=== PATIENT | male | born 1950 | race Caucasian/White ===

== ENCOUNTER 2017-10-29 17:19 | Inpatient (IN) | payer MEDICARE, OTHER ==
[~2017-10-29] VITALS: Ht 172.7 cm; Wt 87.0 kg
[2017-10-29] MEDS ORDERED: SODIUM CHLORIDE FLUSH 10ML SYR IVF ONE (18:00)
[2017-10-29 18:24] LABS: BASOPHILS # (AUTO) 0.02 x10^3/uL (0-0.1); BASOPHILS % (AUTO) 0 % (0-1); EOSINOPHILS # (AUTO) 0.04 x10^3/uL (0-0.4); EOSINOPHILS % (AUTO) 1 % (1-7); LYMPHOCYTES # (AUTO) 0.87 x10^3/uL (1-3.4); LYMPHOCYTES % (AUTO) 16 % (22-44); MD NO; MEAN CORPUSCULAR HEMOGLOBIN 34.5 pg (27.5-34.5); MEAN CORPUSCULAR HGB CONC 33.9 g/dL (33.2-36.2); MEAN CORPUSCULAR VOLUME 101.8 fL (81-97); MEAN PLATELET VOLUME 8.5 fL (7.4-10.4); MONOCYTES # (AUTO) 0.43 x10^3/uL (0.2-0.8); MONOCYTES % (AUTO) 8 % (2-9); NEUTROPHILS # (AUTO) 4.18 x10^3/uL (1.8-6.8); NEUTROPHILS % (AUTO) 76 % (42-75); PLATELET COUNT 154 x10^3/uL (130-400); RED BLOOD COUNT 4.61 x10^6/uL (4.38-5.82); RED CELL DISTRIBUTION WIDTH 12.5 % (9.4-14.8)
[2017-10-29 18:33] LABS: ALANINE AMINOTRANSFERASE 29 U/L (12-78); ALBUMIN 3.5 g/dL (3.4-5.0); ANION GAP 6 mmol/L (5-15); CALCIUM 9.6 mg/dL (8.5-10.1); CHLORIDE 108 mmol/L (98-107); CREATININE 0.71 mg/dL (0.7-1.3)
[2017-10-29 18:35] LABS: ALKALINE PHOSPHATASE 84 U/L (45-117); BILIRUBIN,TOTAL 0.8 mg/dL (0.2-1.0); TOTAL PROTEIN 7.1 g/dL (6.4-8.2)
[2017-10-29] MEDS ORDERED: MORPHINE SULFATE 4 MG/ML, 1ML ONE ×2 (18:52→20:27)
[2017-10-29] MEDS ORDERED: ONDANSETRON ODT 4 MG ONE (19:19)
[2017-10-29] MEDS: MORPHINE SULFATE 4 MG/ML, 1ML IVPush PRN ×2 (19:21→20:32)
[2017-10-29] MEDS ORDERED: ONDANSETRON ODT 4 MG PO ONE (19:30)
[2017-10-29] MEDS ORDERED: LORazepam 2 MG/ML, 1ML ONE (19:40)
[2017-10-29] MEDS ORDERED: OMNIPAQUE 350 MG/ML, 100ML BOTTLE ONE (19:59)
[2017-10-29] MEDS ORDERED: LORazepam 2 MG/ML, 1ML IVPush ONE (20:00)
[2017-10-29 20:23] LABS: MICROSCOPIC NOT IND
[2017-10-29 20:26] LABS: CULTURE INDICATED? NO
[2017-10-29] MEDS ORDERED: METRONIDAZOLE PMX 500MG/100ML 100 ML IV ONE (21:30)
[2017-10-29] MEDS ORDERED: CEFTRIAXONE PMX 1GM/50ML 50 ML IV ONE (21:30)
[2017-10-29] MEDS ORDERED: CEFTRIAXONE PMX 1GM/50ML 50 ML ONE (22:11)
[2017-10-29] MEDS ORDERED: METRONIDAZOLE PMX 500MG/100ML 100 ML ONE (22:11)
[2017-10-29] MEDS ORDERED: hydrALAzine 20 MG/ML, 1ML IVPush PRN (22:30)
[2017-10-29] MEDS ORDERED: ONDANSETRON ODT 4 MG PO PRN (22:30)
[2017-10-29] MEDS: METRONIDAZOLE PMX 500MG/100ML 100 ML IV SCH (22:30)
[2017-10-29] MEDS: CEFTRIAXONE PMX 1GM/50ML 50 ML IV SCH (22:30)
[2017-10-29] MEDS: LACTATED RINGERS 1,000 ML IV SCH (22:36)
[2017-10-29 22:45] VITALS: BP 159/83
[2017-10-29] MEDS ORDERED: LORazepam 2 MG/ML, 1ML IV PRN ×3 (23:00)
[2017-10-29] MEDS: morphine SULFATE 10 MG/ML, 1ML IVPush PRN (23:10)
[2017-10-30] MEDS: POTASSIUM CHLORIDE 20 MEQ, MAGNESIUM SULFATE 1 GM, FOLIC ACID 1 MG, THIAMINE 200 MG, MV... IV SCH ×2 (00:20→23:27)
[2017-10-30 02:11] VITALS: BP 101/59
[2017-10-30 04:42] LABS: BASOPHILS # (AUTO) 0.01 x10^3/uL (0-0.1); BASOPHILS % (AUTO) 0 % (0-1); EOSINOPHILS % (AUTO) 0 % (1-7); LYMPHOCYTES # (AUTO) 0.54 x10^3/uL (1-3.4); LYMPHOCYTES % (AUTO) 7 % (22-44); MD NO; MEAN CORPUSCULAR HEMOGLOBIN 34.7 pg (27.5-34.5); MEAN CORPUSCULAR HGB CONC 34.3 g/dL (33.2-36.2); MEAN CORPUSCULAR VOLUME 101.1 fL (81-97); MEAN PLATELET VOLUME 8.5 fL (7.4-10.4); MONOCYTES # (AUTO) 0.37 x10^3/uL (0.2-0.8); MONOCYTES % (AUTO) 5 % (2-9); NEUTROPHILS # (AUTO) 7.22 x10^3/uL (1.8-6.8); NEUTROPHILS % (AUTO) 89 % (42-75); PLATELET COUNT 135 x10^3/uL (130-400); RED BLOOD COUNT 4.13 x10^6/uL (4.38-5.82); RED CELL DISTRIBUTION WIDTH 12.6 % (9.4-14.8)
[2017-10-30 04:45] LABS: ALANINE AMINOTRANSFERASE 157 U/L (12-78); ANION GAP 6 mmol/L (5-15); CALCIUM 8.5 mg/dL (8.5-10.1); CHLORIDE 107 mmol/L (98-107); CREATININE 0.74 mg/dL (0.7-1.3)
[2017-10-30 04:47] LABS: ALKALINE PHOSPHATASE 165 U/L (45-117); BILIRUBIN,TOTAL 1.3 mg/dL (0.2-1.0)
[2017-10-30] MEDS: morphine SULFATE 10 MG/ML, 1ML IVPush PRN ×3 (06:30→20:54)
[2017-10-30] MEDS: METRONIDAZOLE PMX 500MG/100ML 100 ML IV SCH ×3 (06:30→22:23)
[2017-10-30] MEDS: LACTATED RINGERS 1,000 ML IV SCH (06:31)
[2017-10-30] MEDS ORDERED: EPINEPHRINE 1 MG/ML, 1ML ONE (07:35)
[2017-10-30] MEDS ORDERED: BUPIVACAINE/PF 0.25% ONE (07:35)
[2017-10-30] MEDS: LORazepam 2 MG/ML, 1ML IV PRN (08:15)
[2017-10-30 08:21] VITALS: BP 100/63
[2017-10-30 09:04] VITALS: BP 101/63
[2017-10-30 13:39] VITALS: BP 102/64
[2017-10-30] MEDS ORDERED: MIDAZOLAM 1 MG/ML, 2ML ONE (15:10)
[2017-10-30] MEDS ORDERED: ROCURONIUM 10MG/ML,5ML ONE (15:11)
[2017-10-30] MEDS ORDERED: FENTANYL PF 250 MCG/5ML ONE (15:11)
[2017-10-30] MEDS ORDERED: PROPOFOL 10 MG/ML, 20ML ONE (15:12)
[2017-10-30] MEDS ORDERED: NEOSTIGMINE 1 MG/ML, 10ML ONE (15:13)
[2017-10-30] MEDS ORDERED: GLYCOPYRROLATE 0.2MG/1ML, 5ML ONE (15:13)
[2017-10-30] MEDS ORDERED: CEFOTETAN PMX 2GM/50ML 50 ML ONE (15:14)
[2017-10-30] MEDS ORDERED: hydrALAzine 20 MG/ML, 1ML IV PRN (16:00)
[2017-10-30] MEDS ORDERED: OXYcodone 5 MG/5 ML ORAL.SOL UDC PO PRN (16:00)
[2017-10-30] MEDS ORDERED: ONDANSETRON ODT 8 MG PO PRN (16:00)
[2017-10-30] MEDS ORDERED: LABETALOL 5MG/ML, 20ML IV PRN (16:00)
[2017-10-30] MEDS ORDERED: PROMETHAZINE 25 MG SUPP PR PRN (16:00)
[2017-10-30] MEDS ORDERED: FENTANYL PF 100 MCG/2ML IV PRN (16:00)
[2017-10-30] MEDS ORDERED: PROMETHAZINE 25 MG/ML, 1ML IV PRN (16:00)
[2017-10-30] MEDS ORDERED: MEPERIDINE/PF 25MG/0.5ML IVPush PRN (16:00)
[2017-10-30] MEDS ORDERED: HYDROmorphone 1 MG/ML, 1ML IV PRN (16:00)
[2017-10-30] MEDS ORDERED: PROMETHAZINE 12.5 MG SUPP PR PRN (16:00)
[2017-10-30] MEDS ORDERED: MORPHINE SULFATE 4 MG/ML, 1ML IVPush PRN (16:00)
[2017-10-30] MEDS ORDERED: FENTANYL PF 100 MCG/2ML ONE (16:59)
[2017-10-30] MEDS ORDERED: ACETAMINOPHEN 650 MG/20.3 ML UDC ONE (16:59)
[2017-10-30] MEDS ORDERED: OXYcodone 5 MG/5 ML ORAL.SOL UDC ONE (17:00)
[2017-10-30] MEDS ORDERED: MEPERIDINE/PF 25MG/0.5ML ONE (17:00)
[2017-10-30] MEDS: ACETAMINOPHEN 325 MG TABLET PO PRN ×2 (17:06→20:54)
[2017-10-30 18:55] VITALS: BP 101/65
[2017-10-30 20:55] VITALS: BP 103/67
[2017-10-30] MEDS: CEFTRIAXONE PMX 1GM/50ML 50 ML IV SCH (21:49)
[2017-10-31 00:25] VITALS: BP 98/67
[2017-10-31] MEDS: LACTATED RINGERS 1,000 ML IV SCH ×3 (00:26→21:34)
[2017-10-31 03:52] VITALS: BP 104/64
[2017-10-31] MEDS: ACETAMINOPHEN 325 MG TABLET PO PRN ×3 (04:00→19:40)
[2017-10-31 05:10] LABS: BASOPHILS # (AUTO) 0.03 x10^3/uL (0-0.1); BASOPHILS % (AUTO) 0 % (0-1); EOSINOPHILS # (AUTO) 0.01 x10^3/uL (0-0.4); EOSINOPHILS % (AUTO) 0 % (1-7); LYMPHOCYTES # (AUTO) 0.84 x10^3/uL (1-3.4); LYMPHOCYTES % (AUTO) 11 % (22-44); MD NO; MEAN CORPUSCULAR HEMOGLOBIN 34.7 pg (27.5-34.5); MEAN CORPUSCULAR HGB CONC 34.2 g/dL (33.2-36.2); MEAN CORPUSCULAR VOLUME 101.3 fL (81-97); MEAN PLATELET VOLUME 8.8 fL (7.4-10.4); MONOCYTES # (AUTO) 0.35 x10^3/uL (0.2-0.8); MONOCYTES % (AUTO) 5 % (2-9); NEUTROPHILS # (AUTO) 6.49 x10^3/uL (1.8-6.8); NEUTROPHILS % (AUTO) 84 % (42-75); PLATELET COUNT 123 x10^3/uL (130-400); RED BLOOD COUNT 3.84 x10^6/uL (4.38-5.82); RED CELL DISTRIBUTION WIDTH 12.8 % (9.4-14.8)
[2017-10-31 05:18] LABS: CHLORIDE 107 mmol/L (98-107)
[2017-10-31 05:27] LABS: ALANINE AMINOTRANSFERASE 100 U/L (12-78); ALBUMIN 2.5 g/dL (3.4-5.0); ALKALINE PHOSPHATASE 112 U/L (45-117); ANION GAP 7 mmol/L (5-15); BILIRUBIN,TOTAL 1.7 mg/dL (0.2-1.0); CALCIUM 8.4 mg/dL (8.5-10.1); CREATININE 0.75 mg/dL (0.7-1.3); TOTAL PROTEIN 5.5 g/dL (6.4-8.2)
[2017-10-31] MEDS: METRONIDAZOLE PMX 500MG/100ML 100 ML IV SCH ×4 (06:02→23:28)
[2017-10-31 08:04] VITALS: BP 132/81
[2017-10-31] MEDS: LORazepam 2 MG/ML, 1ML IV PRN (11:16)
[2017-10-31 13:48] VITALS: BP 101/63
[2017-10-31 19:36] VITALS: BP 127/83
[2017-10-31] MEDS: CEFTRIAXONE PMX 1GM/50ML 50 ML IV SCH (22:05)
[2017-11-01] MEDS: POTASSIUM CHLORIDE 20 MEQ, MAGNESIUM SULFATE 1 GM, FOLIC ACID 1 MG, THIAMINE 200 MG, MV... IV SCH (00:32)
[2017-11-01 01:16] VITALS: BP 111/69
[2017-11-01] MEDS: ACETAMINOPHEN 325 MG TABLET PO PRN (05:22)
[2017-11-01 07:56] VITALS: BP 111/74
[2017-11-01] MEDS: LACTATED RINGERS 1,000 ML IV SCH (07:58)
[2017-11-01] MEDS: METRONIDAZOLE PMX 500MG/100ML 100 ML IV SCH (07:58)
== END 2017-11-01 10:03 | disposition home or self-care (01) | DRG 417 ==
LOC: ED 20:43 → EDIP 21:27 → 4NOR 22:24
PROVIDERS: ADMIT Hospitalist; ATTEND Hospitalist
PROC: 0FT44ZZ Resection of Gallbladder, Percutaneous Endoscopic Approach (ICD-10-PCS; principal; 2017-10-30 13:30)
DX: K80.00 Calculus of gallbladder with acute cholecystitis without obstruction (principal); K85.90 Acute pancreatitis without necrosis or infection, unspecified; F10.239 Alcohol dependence with withdrawal, unspecified; E78.5 Hyperlipidemia, unspecified; F17.210 Nicotine dependence, cigarettes, uncomplicated; R73.9 Hyperglycemia, unspecified; G25.0 Essential tremor; I10 Essential (primary) hypertension; I16.0 Hypertensive urgency; K21.9 Gastro-esophageal reflux disease without esophagitis; K57.30 Diverticulosis of large intestine without perforation or abscess without bleeding; N40.0 Benign prostatic hyperplasia without lower urinary tract symptoms; Z90.49 Acquired absence of other specified parts of digestive tract
CPT/HCPCS: 36415; 74177; 74181; 76700; 80053; 81003; 83690; 83735; 84100; 85025; 88304; 93005; 96365; 96375; 96376; J0171; J0696; J2175; J2250; J2704; J2710; J3010; J3411; J3475; J3480; J3490; J7042; Q0162; Q9967; J2060; J2270; J7120; S0074

== ENCOUNTER → 2020-04-21 | Outpatient (CLI) | payer MEDICARE, OTHER ==
[~2020-04-21] MED LIST: ALPR1TAB2 PO; AMLO-150 PO; ASPI81TA45 PO; MULT-717 PO; OMEP20TA62 PO; PRIM50TA34 PO; SIMV20TA19 PO; TAMS-11 PO; UBID100C24 PO
== END | disposition home or self-care (01) ==
LOC: STAR 10:35
PROVIDERS: ATTEND Internal Medicine Gastroenterology
DX: Z01.812 Encounter for preprocedural laboratory examination (principal); Z20.828 Contact with and (suspected) exposure to other viral communicable diseases; K80.30 Calculus of bile duct with cholangitis, unspecified, without obstruction
CPT/HCPCS: 87635; 93005

== ENCOUNTER 2020-04-26 08:59 | Day surgery (SDC) | payer MEDICARE, OTHER ==
[~2020-04-26] VITALS: Ht 172.7 cm; Wt 81.9 kg
[2020-04-26 09:30] VITALS: BP 109/72
[2020-04-26] MEDS ORDERED: LACTATED RINGERS 1,000 ML IV SCH (09:30)
[2020-04-26] MEDS ORDERED: CHLORHEXIDINE 15 ML UDC MM ONE (09:30)
[2020-04-26] MEDS ORDERED: LABETALOL 5MG/ML, 20ML IV PRN (11:00)
[2020-04-26] MEDS ORDERED: hydrALAzine 20 MG/ML, 1ML IV PRN (11:00)
[2020-04-26] MEDS ORDERED: OMNIPAQUE 350 MG/ML, 50 ML BOTTLE ONE (11:00)
[2020-04-26] MEDS ORDERED: FENTANYL PF 100 MCG/2ML IV PRN (11:00)
[2020-04-26] MEDS ORDERED: HALOPERIDOL 5 MG/ML IV PRN (11:00)
[2020-04-26] MEDS ORDERED: PROMETHAZINE 25 MG/ML, 1ML IVPush PRN (11:00)
[2020-04-26] MEDS ORDERED: FENTANYL PF 100 MCG/2ML ONE (11:15)
[2020-04-26] MEDS ORDERED: ONDANSETRON 2MG/ML, 2ML ONE (12:33)
[2020-04-26] MEDS ORDERED: SUCCINYLCHOLINE 20 MG/ML, 10ML ONE (12:33)
[2020-04-26] MEDS ORDERED: NEOSTIGMINE 1 MG/ML, 10ML ONE (12:33)
[2020-04-26] MEDS ORDERED: PROPOFOL 10 MG/ML, 20ML ONE (12:33)
[2020-04-26] MEDS ORDERED: DEXAMETHASONE 4 MG/ML, 1ML ONE (12:33)
[2020-04-26] MEDS ORDERED: CEFAZOLIN 1,000 MG ONE (12:33)
[2020-04-26] MEDS ORDERED: GLYCOPYRROLATE 0.2MG/1ML, 5ML ONE (12:33)
[2020-04-26] MEDS ORDERED: ROCURONIUM 10MG/ML,5ML ONE (12:33)
[2020-04-26] MEDS ORDERED: INDOMETHACIN 50 MG SUPP.RECT ONE (12:46)
[2020-04-26] MEDS ORDERED: INDOMETHACIN 50 MG SUPP.RECT PR ONE (13:00)
== END 2020-04-26 14:05 | disposition home or self-care (01) ==
LOC: OUT 08:59
PROVIDERS: ATTEND Internal Medicine Gastroenterology
DX: K80.50 Calculus of bile duct without cholangitis or cholecystitis without obstruction (principal); K57.10 Diverticulosis of small intestine without perforation or abscess without bleeding; F41.9 Anxiety disorder, unspecified; I10 Essential (primary) hypertension; E78.00 Pure hypercholesterolemia, unspecified; K21.9 Gastro-esophageal reflux disease without esophagitis; F12.11 Cannabis abuse, in remission; Z88.8 Allergy status to other drugs, medicaments and biological substances; Z90.49 Acquired absence of other specified parts of digestive tract; Z98.890 Other specified postprocedural states; Z79.82 Long term (current) use of aspirin; Z79.899 Other long term (current) drug therapy; Z72.89 Other problems related to lifestyle; Z87.891 Personal history of nicotine dependence
CPT/HCPCS: 43262; 43264; 74328; C1769; J0330; J1100; J2405; J2704; J3010; J7120; Q9967; 76000; J0690; J2710